=== PATIENT | male | born 1965 | race African-American/Black ===

== ENCOUNTER 2019-06-30 19:13 | Emergency (ER) | payer OTHER ==
[~2019-06-30] VITALS: Ht 170.2 cm; Wt 81.6 kg
[2019-06-30 21:03] LABS: Basophils # (auto) 0 uL; Basophils % (auto) 0.4 % (0.0-2.0); Eosinophils # (auto) 0.2 uL; Hematocrit 47.6 % (41.0-53.0); Hemoglobin 16.2 g/dL (13.5-17.5); Lymphocytes % (auto) 25.6 % (10.0-50.0); Mean Corpuscular Hemoglobin 30.3 pg (28.0-32.0); Monocytes # (auto) 0.7 uL; Monocytes % (auto) 9.1 % (0.0-12.0); Neutrophils # (auto) 4.9 uL; Neutrophils % (auto) 62.9 % (37.0-80.0); Platelet Count (auto) 227 10^3/uL (140-450); Red Blood Cells 5.34 10^6/uL (4.5-5.90); Red Cell Distribution Width 14.2 % (11.8-14.3); White Blood Cell 7.9 10^3/uL (4.4-10.8)
[2019-06-30 21:16] LABS: Urine Bacteria NONE SEEN /hpf (None Seen); Urine Blood Negative /uL (Negative); Urine Specific Gravity 1.024 (1.001-1.035); Urine WBC 1 /hpf (0 - 3)
[2019-06-30 21:21] LABS: Partial Thromboplastin Time 28.2 sec (23.64-32.05)
[2019-06-30 21:24] LABS: Albumin 3.4 g/dL (3.4-5.0); Anion Gap 6 (5-15); Blood Urea Nitrogen 15 mg/dL (7-18); Calcium 8.1 mg/dL (8.5-10.1); Carbon Dioxide 27 mmol/L (21-32); Chloride 104 mmol/L (98-107); Potassium 3.6 mmol/L (3.5-5.1); Sodium 137 mmol/L (136-145)
[2019-06-30 21:27] LABS: Alanine Aminotransferase 24 U/L (16-61); Aspartate Aminotransferase 17 U/L (15-37); GFR African American 85 mL/min; GFR Non-African American 70 mL/min; Glucose 123 mg/dL (74-106)
[2019-06-30 21:32] LABS: Alkaline Phosphatase 123 U/L (45-117); Bilirubin, Total 0.9 mg/dL (0.2-1.0); Total Protein 8.2 g/dL (6.4-8.2)
[2019-07-01] MEDS ORDERED: cloNIDine HCL 0.1 MG TAB PO ONE (07:00)
[2019-07-01 08:01] VITALS: BP 151/95
== END 2019-07-01 08:13 | disposition home or self-care (01) ==
LOC: ER 19:13
DX: N20.0 Calculus of kidney (principal); I48.91 Unspecified atrial fibrillation; I10 Essential (primary) hypertension
CPT/HCPCS: 36415; 74176; 80053; 81001; 83880; 84484; 85025; 85610; 85730; 93005

== ENCOUNTER 2021-04-02 10:16 | Inpatient (IN) | payer OTHER ==
[~2021-04-02] VITALS: Ht 170.2 cm; Wt 85.8 kg
[2021-04-02 11:56] LABS: Basophils # (auto) 0 10 ^3/uL (0-0.2); Eosinophils # (auto) 0.1 10 ^3/uL (0-0.8); Eosinophils % (auto) 1.4 % (0.0-7.0); Lymphocytes # (auto) 1.6 10 ^3/uL (0.4-5.4)
[2021-04-02 12:01] LABS: Basophils % (auto) 0.4 % (0.0-2.0); Lymphocytes % (auto) 18.9 % (10.0-50.0); Mean Corpuscular Hemoglobin 32.3 pg (28.0-32.0); Mean Corpuscular Hgb Conc. 32.2 g/dL (32.0-36.0); Mean Corpuscular Volume 100.4 fL (80.0-100.0); Monocytes # (auto) 0.5 10 ^3/uL (0-1.3); Monocytes % (auto) 5.7 % (0.0-12.0); Neutrophils # (auto) 6.3 10 ^3/uL (1.6-8.6); Neutrophils % (auto) 73.6 % (37.0-80.0); Nucleated Red Blood Cells % 0.9 %; Red Blood Cells 2.09 10^6/uL (4.5-5.90); Red Cell Distribution Width 18.8 % (11.8-14.3); White Blood Cell 8.5 10^3/uL (4.4-10.8)
[2021-04-02 12:16] LABS: Hemoglobin 6.8 g/dL (13.5-17.5)
[2021-04-02 12:17] LABS: Albumin 3.1 g/dL (3.4-5.0); Calcium 8.4 mg/dL (8.5-10.1); Potassium 3.7 mmol/L (3.5-5.1)
[2021-04-02 12:37] LABS: BUN/Creatinine Ratio 13.9; Total Protein 6.8 g/dL (6.4-8.2)
[2021-04-02] MEDS ORDERED: IOHEXOL 350 MG/ML 100ML IJ ONE (13:00)
[2021-04-02 16:25] LABS: Urine Bacteria NONE SEEN /hpf (None Seen); Urine Blood Negative /uL (Negative); Urine Mucus FEW (None Seen); Urine Specific Gravity 1.032 (1.001-1.035); Urine WBC 1 /hpf (0 - 3)
[2021-04-02] MEDS ORDERED: ONDANSETRON HCL 4 MG/2 ML VIAL IV ONE (22:15)
[2021-04-02] MEDS ORDERED: MORPHINE SULFATE 4 MG/ML SYR/VIAL IV ONE (22:15)
[2021-04-02] MEDS ORDERED: MORPHINE SULFATE INJECTION 2 MG/ML SYRG IV PRN (22:45)
[2021-04-02] MEDS ORDERED: ACETAMINOPHEN 325 MG TAB PO PRN (22:45)
[2021-04-02] MEDS ORDERED: NITROGLYCERIN 0.4 MG SL TAB SL PRN (22:45)
[2021-04-02] MEDS ORDERED: ONDANSETRON HCL 4 MG/2 ML VIAL IV PRN (22:45)
[2021-04-02] MEDS ORDERED: ATORVASTATIN 20 MG TAB PO ONE (22:45)
[2021-04-02] MEDS ORDERED: ASPirin 81 mg TAB PO ONE (22:45)
[2021-04-02 23:50] LABS: INR 1.03 (0.9-1.15); Partial Thromboplastin Time 20.5 sec (23.6-33.0)
[2021-04-03] VITALS (12 sets, daily range): BP systolic 99–131; BP diastolic 49–69
[2021-04-03] MEDS ORDERED: ENOXAPARIN SOD 100 MG/1 ML SYRINGE SC ONE
[2021-04-03 07:00] LABS: Potassium 4.3 mmol/L (3.5-5.1)
[2021-04-03 07:04] LABS: Albumin 2.7 g/dL (3.4-5.0); BUN/Creatinine Ratio 11.8; Basophils # (auto) 0 10 ^3/uL (0-0.2); Basophils % (auto) 0.3 % (0.0-2.0); Calcium 8.2 mg/dL (8.5-10.1); Eosinophils # (auto) 0.2 10 ^3/uL (0-0.8); Red Cell Distribution Width 18.9 % (11.8-14.3)
[2021-04-03 07:06] LABS: Total Protein 5.7 g/dL (6.4-8.2)
[2021-04-03 07:09] LABS: Eosinophils % (auto) 2.6 % (0.0-7.0); Hematocrit 23.2 % (41.0-53.0); Hemoglobin 7.6 g/dL (13.5-17.5); Lymphocytes # (auto) 1.4 10 ^3/uL (0.4-5.4); Lymphocytes % (auto) 16.4 % (10.0-50.0); Mean Corpuscular Hemoglobin 31.3 pg (28.0-32.0); Mean Corpuscular Hgb Conc. 32.5 g/dL (32.0-36.0); Mean Corpuscular Volume 96.1 fL (80.0-100.0); Monocytes # (auto) 0.8 10 ^3/uL (0-1.3); Monocytes % (auto) 8.9 % (0.0-12.0); Neutrophils # (auto) 6.3 10 ^3/uL (1.6-8.6); Neutrophils % (auto) 71.8 % (37.0-80.0); Nucleated Red Blood Cells % 1.3 %; Red Blood Cells 2.41 10^6/uL (4.5-5.90); White Blood Cell 8.8 10^3/uL (4.4-10.8)
[2021-04-03] MEDS ORDERED: ASPirin 81 mg TAB PO SCH (10:00)
[2021-04-03] MEDS ORDERED: METO25TA5 PO (10:26)
[2021-04-03] MEDS ORDERED: APIX5TAB PO (10:26)
[2021-04-03] MEDS ORDERED: CLOP75TA70 PO (10:26)
[2021-04-03] MEDS ORDERED: ATOR10TA52 PO (10:26)
[2021-04-03] MEDS: METOPROLOL TARTRATE 25 MG TAB PO SCH ×2 (10:28→22:45)
[2021-04-03] MEDS: CLOPIDOGREL BISULFATE 75 MG TAB PO SCH (10:28)
[2021-04-03] MEDS: APIXABAN 2.5 MG TAB PO SCH ×2 (10:28→22:45)
[2021-04-03] MEDS: PANTOPRAZOLE 40 MG TAB PO SCH (10:28)
[2021-04-03] MEDS: HYDROcodone-ACET 5/325MG TAB PO PRN (10:35)
[2021-04-03] MEDS ORDERED: MORPHINE SULFATE INJECTION 2 MG/ML SYRG IV PRN (13:45)
[2021-04-03] MEDS: ATORVASTATIN 20 MG TAB PO SCH (22:45)
[2021-04-04 05:00] VITALS: BP 124/60
[2021-04-04 06:23] LABS: Basophils # (auto) 0 10 ^3/uL (0-0.2); Eosinophils # (auto) 0.2 10 ^3/uL (0-0.8); Hematocrit 22.7 % (41.0-53.0); Hemoglobin 7.2 g/dL (13.5-17.5); Lymphocytes # (auto) 0.9 10 ^3/uL (0.4-5.4); Monocytes # (auto) 0.5 10 ^3/uL (0-1.3); Red Blood Cells 2.39 10^6/uL (4.5-5.90)
[2021-04-04 06:26] LABS: Basophils % (auto) 0.3 % (0.0-2.0); Eosinophils % (auto) 2.5 % (0.0-7.0); Lymphocytes % (auto) 12.2 % (10.0-50.0); Mean Corpuscular Hemoglobin 30.1 pg (28.0-32.0); Mean Corpuscular Hgb Conc. 31.7 g/dL (32.0-36.0); Mean Corpuscular Volume 94.8 fL (80.0-100.0); Neutrophils # (auto) 5.8 10 ^3/uL (1.6-8.6); Nucleated Red Blood Cells % 0.9 %; Red Cell Distribution Width 19.1 % (11.8-14.3); White Blood Cell 7.5 10^3/uL (4.4-10.8)
[2021-04-04 09:00] VITALS: BP 119/72
[2021-04-04 10:02] LABS: % Iron Saturation 7.8 % (20-55)
[2021-04-04] MEDS: PANTOPRAZOLE 40 MG TAB PO SCH ×2 (10:44→21:44)
[2021-04-04] MEDS: METOPROLOL TARTRATE 25 MG TAB PO SCH ×2 (10:46→21:44)
[2021-04-04] MEDS: CLOPIDOGREL BISULFATE 75 MG TAB PO SCH (10:47)
[2021-04-04] MEDS: APIXABAN 2.5 MG TAB PO SCH ×2 (10:47→21:43)
[2021-04-04 13:00] VITALS: BP 102/69
[2021-04-04] MEDS: SODIUM FERR GLUC 62.5MG/5ML 125 MG in SODIUM CHL 0.9% 100 ML IV SCH (14:00)
[2021-04-04 17:00] VITALS: BP 122/59
[2021-04-04] MEDS: SUCRALFATE 1 GM/10 ML ORAL SUSP PO SCH ×2 (17:12→21:43)
[2021-04-04 21:30] VITALS: BP 122/72
[2021-04-04] MEDS: ATORVASTATIN 20 MG TAB PO SCH (21:43)
[2021-04-05 06:00] VITALS: BP 105/63
[2021-04-05 06:25] LABS: Hematocrit 26.6 % (41.0-53.0); Hemoglobin 8.4 g/dL (13.5-17.5); Mean Corpuscular Hemoglobin 31.3 pg (28.0-32.0); Mean Corpuscular Hgb Conc. 31.7 g/dL (32.0-36.0); Red Blood Cells 2.69 10^6/uL (4.5-5.90); Red Cell Distribution Width 19.2 % (11.8-14.3); White Blood Cell 7.9 10^3/uL (4.4-10.8)
[2021-04-05 06:28] LABS: Basophils % (manual) 0 (0.0-2.0); Blast Cells 0; Metamyelocytes % 0; Myelocytes % 0; Promyelocytes % 0; Reactive Lymphocytes 0
[2021-04-05] MEDS: SUCRALFATE 1 GM/10 ML ORAL SUSP PO SCH ×2 (07:26→11:30)
[2021-04-05 08:00] VITALS: BP 105/66
[2021-04-05 08:40] LABS: Band Neutrophils % (manual) 1; Eosinophils % (manual) 3 (0-7); Lymphocytes % (manual) 27 (10.0-50.0); Monocytes % (manual) 3 (0-12)
[2021-04-05 09:00] VITALS: BP 105/66
[2021-04-05] MEDS: APIXABAN 2.5 MG TAB PO SCH (09:41)
[2021-04-05] MEDS: METOPROLOL TARTRATE 25 MG TAB PO SCH (09:44)
[2021-04-05] MEDS: CLOPIDOGREL BISULFATE 75 MG TAB PO SCH (09:45)
[2021-04-05] MEDS: PANTOPRAZOLE 40 MG TAB PO SCH (09:45)
[2021-04-05] MEDS: HYDROcodone-ACET 5/325MG TAB PO PRN (09:56)
[2021-04-05] MEDS ORDERED: PANT40T PO (10:51)
[2021-04-05] MEDS ORDERED: FER325T PO (10:51)
[2021-04-05] MEDS ORDERED: SUCR1SUS10 PO (10:52)
[2021-04-05] MEDS: SODIUM FERR GLUC 62.5MG/5ML 125 MG in SODIUM CHL 0.9% 100 ML IV SCH (12:04)
[2021-04-05 13:28] VITALS: BP 105/66
== END 2021-04-05 15:30 | disposition home or self-care (01) | DRG 862 ==
LOC: ER 10:16 → TELE 22:37 → TELE-WESTW 04-03 08:39
PROVIDERS: ADMIT Nurse Practitioner; ATTEND Internal Medicine
PROC: 30233N1 Transfusion of Nonautologous Red Blood Cells into Peripheral Vein, Percutaneous Approach (ICD-10-PCS; principal; 2021-04-03)
DX: S22.41XG Multiple fractures of ribs, right side, subsequent encounter for fracture with delayed healing (principal); I21.A1 Myocardial infarction type 2; D68.69 Other thrombophilia; D50.9 Iron deficiency anemia, unspecified; E11.9 Type 2 diabetes mellitus without complications; I48.20 Chronic atrial fibrillation, unspecified; I10 Essential (primary) hypertension; I25.10 Atherosclerotic heart disease of native coronary artery without angina pectoris; Z20.822 Contact with and (suspected) exposure to COVID-19; S22.20XG Unspecified fracture of sternum, subsequent encounter for fracture with delayed healing; V89.2XXD Person injured in unspecified motor-vehicle accident, traffic, subsequent encounter; Z79.01 Long term (current) use of anticoagulants; Z79.02 Long term (current) use of antithrombotics/antiplatelets; Z98.61 Coronary angioplasty status
CPT/HCPCS: 36415; 71046; 71275; 74176; 80053; 81001; 82270; 83540; 83550; 83880; 84484; 85007; 85025; 85027; 85379; 85610; 85730; 86850; 86900; 86901; 86920; 87426; 93005; 93306; 96372; 96374; 96375; G0378; J2405